=== PATIENT | male | born 1975 | race Caucasian/White ===

== ENCOUNTER 2017-09-01 21:03 | Inpatient (IN) | payer OTHER ==
[~2017-09-01] VITALS: Ht 162.6 cm; Wt 77.1 kg
--- NOTE | 2017-09-01 22:12 | NUR ---
PT STATES "i HAD SOME SHARP PAIN IN MY FOREHEAD 3 HOURS AGO AND MY EYES HURT TOO WITH +DIZZINESS AND BLURRED VISSION". PT ALSO STATES "NOW I FEEL BETTER AND MY VISION IS BACK TO NORMAL". PT IS AAOX4. PT ABLE TO SPEAK IN FULL CLEAR SENTENCES. PT AMBULATED TO ER BED 11 WITH STEADY GAIT NOTED. VSS. SKIN WNL. PT ABLE TO MOVE ALL EXTREMITIES WITH NO ASSISTANCE OR DIFFICULTY. RESP EVEN AND UNLABORED. NO S/S OF ACUTE DISTRESS NOTED. PT PLACED ON AVIATION OPERATIONS SPECIALIST AND POX. PT'S FAMILY BEDSIDE. WILL CONTINUE TO MONITOR PT.
[2017-09-02] MEDS ORDERED: ONDANSETRON HCL/PF 4 MG/2 ML VIAL IVP ONE (00:30)
[2017-09-02] MEDS ORDERED: MORPHINE SULFATE INJ 2 MG/ML DISP.SYRIN IV ONE (00:30)
[2017-09-02] MEDS ORDERED: ONDANSETRON HCL/PF 4 MG/2 ML VIAL ONE (00:39)
[2017-09-02] MEDS ORDERED: MORPHINE SULFATE INJ 2 MG/ML DISP.SYRIN ONE (00:40)
[2017-09-02] MEDS ORDERED: MORPHINE SULFATE INJ 4 MG/ML DISP.SYRIN ONE (00:40)
[2017-09-02 00:55] LABS: BASOPHILS % (AUTO) 0.2 % (0.0-2.0); EOSINOPHILS % (AUTO) 8.5 % (0.0-6.0); HEMATOCRIT 39 % (39-51); HEMOGLOBIN 13.3 g/dL (13.5-17.5); LYMPHOCYTES # (AUTO) 2.7 /CMM (0.8-4.8); LYMPHOCYTES % (AUTO) 34.8 % (20.0-44.0); MEAN CORPUSCULAR HGB CONC 34 g/dl (31.0-36.0); MEAN CORPUSCULAR VOLUME 78 fL (80-96); MONOCYTES # (AUTO) 0.5 /CMM (0.1-1.30); MONOCYTES % (AUTO) 6.2 % (2.0-12.0); NEUTROPHILS # (AUTO) 3.8 /CMM (1.8-8.9); NEUTROPHILS % (AUTO) 50.3 % (43.0-81.0); PLATELET COUNT (AUTO) 276 /CMM (150-450); RDW COEFFICIENT OF VARIATION 13.7 (11.5-15.0); RED BLOOD CELL COUNT(AUTO) 4.93 MIL/uL (4.5-6.0); WHITE BLOOD COUNT (AUTO) 7.7 K/uL (4.3-11.0)
--- NOTE | 2017-09-02 01:01 | NUR ---
Patient is resting comfortably in bed with eyes closed. Easily aroused. VSS
[2017-09-02 01:13] LABS: CALCIUM, SERUM 8.8 mg/dL (8.5-10.1); CREATININE 0.8 mg/dL (0.6-1.3); POTASSIUM 3.6 mmol/L (3.5-5.1)
[2017-09-02 01:15] LABS: TROPONIN I 0.017 ng/mL (0.00-0.056)
[2017-09-02 01:16] LABS: INR 1.01 (0.87-1.13)
[2017-09-02 01:17] LABS: ALBUMIN 3.7 g/dL (3.4-5.0); BILIRUBIN,DIRECT 0.1 mg/dL (0.0-0.2); BILIRUBIN,TOTAL 0.5 mg/dL (0.2-1.0)
[2017-09-02] MEDS ORDERED: ASPIRIN 325 MG TABLET PO SCH (02:00)
[2017-09-02] MEDS ORDERED: HYDROCODONE/APAP 5/325MG 1 EACH TABLET PO PRN (02:00)
[2017-09-02] MEDS ORDERED: ASPIRIN 325 MG TABLET ONE (02:05)
--- NOTE | 2017-09-02 03:10 | NUR ---
CODING COMPLIANCE SPECIALIST NOTES, RECEIVED PATIENT FROM ER DEPARTMENT VIA STRETCHER IN COMPANY OF 2 STAFF, IN STABLE CONDITION AT THIS TIME, ALERT AND ORIENTED X4 ABLE TO VERBALIZED NEEDS AND CONCERNS, DENIES PAIN, DIZZINESS OR BLURRED VISION AT THIS TIME, NO ABNORMALITY NOTED, BREATHING EVEN AND UNLABORED NO S/S OF SOB/ACUTE DISTRESS NOTED AT THIS TIME, UNDER MEDICAL SERVICES OF DR LEONIE GREGORY MD. ADMITTING DX R/O STROKE, NO MEDICAL HX REPORTED, FULL CODE, NKA, SR IN THE PATHOLOGY LABORATORY TECHNOLOGIST UPON ADMISSION, BED LOCKED AND PROPER POSITION, ORIENTED TO ROOM, CALL LIGHT W/I REACH, FAMILY AT BEDSIDE, WILL CONTINUE TO MONITOR CLOSELY.
--- NOTE | 2017-09-02 03:10 | NUR ---
DIRECTOR EXPERIMENTAL MEDICINE NOTES, VS UPON ADMISSION 97.5, 117/74, 59, 02 SAT 98% RA, 0, , WILL CONTINUE TO MONITOR CLOSELY.
[2017-09-02 04:00] VITALS: BP_SYST 112; BP_SYST 117; BP_DIAS 72; BP_DIAS 74
[2017-09-02] MEDS: BLOOD SUGAR DIAGNOSTIC 1 EACH STRIP IN SCH ×6 (06:00→17:10)
--- NOTE | 2017-09-02 06:08 | NUR ---
SCHEDULE CHECKER NOTES, ACCUCHECK NOT ADMINISTERED PATIENT IS NOT NPO CURRENTLY REGULAR DIET.
[2017-09-02 06:25] LABS: BASOPHILS % (AUTO) 0.5 % (0.0-2.0); EOSINOPHILS % (AUTO) 10.3 % (0.0-6.0); HEMATOCRIT 39 % (39-51); HEMOGLOBIN 13.3 g/dL (13.5-17.5); LYMPHOCYTES # (AUTO) 2.9 /CMM (0.8-4.8); LYMPHOCYTES % (AUTO) 48.1 % (20.0-44.0); MEAN CORPUSCULAR HGB CONC 35 g/dl (31.0-36.0); MEAN CORPUSCULAR VOLUME 78 fL (80-96); MONOCYTES # (AUTO) 0.4 /CMM (0.1-1.30); MONOCYTES % (AUTO) 6.9 % (2.0-12.0); NEUTROPHILS # (AUTO) 2.1 /CMM (1.8-8.9); NEUTROPHILS % (AUTO) 34.2 % (43.0-81.0); PLATELET COUNT (AUTO) 266 /CMM (150-450); RDW COEFFICIENT OF VARIATION 13.6 (11.5-15.0); RED BLOOD CELL COUNT(AUTO) 4.91 MIL/uL (4.5-6.0); WHITE BLOOD COUNT (AUTO) 6.1 K/uL (4.3-11.0)
--- NOTE | 2017-09-02 06:32 | NUR ---
CABLE TELEVISION PROGRAM DIRECTOR NOTES, PATIENT SLEEPING AT THIS TIME, BREATHING EVEN AND UNLABORED NO S/S OF SOB/ACUTE DISTRESS NOTED AT THIS TIME, NO FACIAL GRIMACING NOTED, SR IN THE TYPE PROOF REPRODUCER, LEFT AC IV ACCESS INTACT AND PATENT, AT BEDSIDE SLEEPING TOO, BED LOCKED AND PROPER POSITION, NO C/O OF DISCOMFORT OR ABNORMALITY NOTED OR REPORTED THROUGHOUT THE SHIFT, CALL LIGHT W/I REACH, WILL ENDORSE CONTINUITY OF CARE TO ONCOMING NURSE.
[2017-09-02 06:35] LABS: CALCIUM, SERUM 8.8 mg/dL (8.5-10.1); CREATININE 0.9 mg/dL (0.6-1.3)
[2017-09-02 06:48] LABS: ALBUMIN 3.5 g/dL (3.4-5.0); BILIRUBIN,TOTAL 0.5 mg/dL (0.2-1.0); TOTAL PROTEIN, SERUM 6.7 g/dL (6.4-8.2)
[2017-09-02 06:51] LABS: THYROID STIMULATING HORMONE 3.948 uIU/mL (0.358-3.74)
--- NOTE | 2017-09-02 07:30 | NUR ---
RN INITIAL NOTES: RECEIVED IN BED, ALERT, AWAKE AND ORIENTED. ON RA BREATH SOUNDS CLEAR. HL ON L AC. ABD SOFT, NON DISTENDED. NO C/O BLURRY VISION NOR HEADACHE. AT BEDSIDE. WILL CONTINUE TO MONITOR.
[2017-09-02 08:00] VITALS: BP 110/58
[2017-09-02] MEDS ORDERED: ASPIRIN EC 325 MG TABLET.DR PO SCH (09:00)
[2017-09-02 12:00] VITALS: BP 96/57
--- NOTE | 2017-09-02 12:30 | NUR ---
RN NOTES: BLOOD SUGARS MONITORED. NO C/O HEADACHE, NO C/O DIZZINESS, NO C/O BLURRY VISION. BED LOW AND LOCKED. WILL CONTINUE TO MONITOR.
[2017-09-02 16:00] VITALS: BP 103/59
--- NOTE | 2017-09-02 18:33 | NUR ---
RN CLOSING NOTES: RESTING IN BED, NO DISTRESS NOTED. EATING WELL. NO C/O BLURRY VISION, NO C/O HEADACHE, STATED "I WANT TO GO HOME." REFUSED BLOOD SUGAR CHECK THIS AFTERNOON. AT BEDSIDE. WILL CONTINUE TO MONITOR.
[2017-09-02 20:00] VITALS: BP 106/67
--- NOTE | 2017-09-02 20:17 | NUR ---
TELE/RN NOTES: RECEIVED PT. WALKING OUTSIDE THE NURSING STATION A/O X 4. NO S/S OF RESPIRATORY DISTRESS. NO C/O SOB OR PAIN AT PRESENT. ON TELE MONITOR W/ SR. PT. ALREADY DRESSED AND WANTING TO GO HOME. EXPLAINED THAT PER Dre MATTHEWS NOTES WE ARE WAITING FOR RESULTS OF TOTAL 3 PENDING. CALLED PHARMACY AND PER PHARMACY IT IS A SEND OUT ORDER AND WILL TAKE UP TO 24 HRS OR MORE. INFORMED PT. BUT PT. REFUSED. CALLED DR. GREGORY AND PER IT IS OK FOR PT. TO GO HOME. HL D/C.
--- NOTE | 2017-09-02 20:26 | NUR ---
CALL CENTER SUPPORT CONSULTANT/ NOTES: CLEMENTINA MATTHEWS N.P. CAME TO SEE THE PT. INFORMED THAT PT. LEFT AMA.
[2017-09-02] MEDS ORDERED: ATORVASTATIN 10 MG TABLET PO SCH (22:00)
--- NOTE | 2017-09-03 11:37 | NUR ---
Social service consult requested by Dr. Krishnamurthy for possible stroke. Pt. is a 41 year old male who was admitted to [facility] for stroke. SW was about to go assess pt. but was informed that pt. left the hospital last night against medical advice.
== END 2017-09-02 20:30 | disposition left against medical advice (07) | DRG 103 ==
LOC: ER 21:06 → TELE1 09-02 01:07
PROVIDERS: ADMIT Internal Medicine; ATTEND Internal Medicine
DX: G43.909 Migraine, unspecified, not intractable, without status migrainosus (principal); E02 Subclinical iodine-deficiency hypothyroidism; E78.5 Hyperlipidemia, unspecified
CPT/HCPCS: 36415; 70450-TC; 71045-TC; 80048-TC; 80053-TC; 80061-TC; 80076-TC; 82962-TC; 83880; 84439-TC; 84443-TC; 84480; 84484-TC; 85025-TC; 85652-TC; 85730-TC; 87081-TC; 92611-TC; 93307-TC; 93880-TC; A4606; J2270; J2405; Z7610